=== PATIENT | male | born 1990 | race Caucasian/White ===

== ENCOUNTER 2018-12-11 21:36 | Inpatient (IN) ==
[2018-12-11] MEDS ORDERED: KETOROLAC 15 MG/1 ML VIAL IVP ONE (21:48)
[2018-12-11] MEDS ORDERED: Sodium Chloride 0.9% 1,000 ML PRIMARY IV ONE (21:48)
[2018-12-11 22:05] LABS: Hematocrit [HCT] 38.7 % (42.0-52.0); Hemoglobin [HGB] 13.5 g/dL (14.0-18.0); MEAN CORPUSCULAR VOLUME 90.6 FL (80-90); RED BLOOD COUNT 4.27 10^6/uL (4.70-6.10)
[2018-12-11 22:06] LABS: BASOPHILS # (AUTO) 0.03 10*3/UL; BASOPHILS % (AUTO) 0.2 % (0-1); EOSINOPHILS # (AUTO) 0.12 10*3/UL; EOSINOPHILS % (AUTO) 0.9 % (0-8); LYMPHOCYTES # (AUTO) 1.51 10*3/uL; MEAN CORPUSCULAR HGB CONC 34.9 g/dL (33-37); MEAN PLATELET VOLUME 9.1 FL (7.4-12.2); MONOCYTES # (AUTO) 1.11 10*3/UL (0.3-0.8); MONOCYTES % (AUTO) 8.3 % (5-15); NEUTROPHILS # (AUTO) 10.51 10*3/UL; NEUTROPHILS % (AUTO) 78.9 % (50-80); PLATELET MORPHOLOGY COMMENT NORMAL MORPHOLOGY (NORM); RBC MORPHOLOGY COMMENT NORMAL MORPHOLOGY (NORM); WBC MORPHOLOGY COMMENT NORMAL MORPHOLOGY (NORM)
[2018-12-11 22:13] LABS: BLOOD UREA NITROGEN 15 mg/dL (7-22); SERUM ALBUMIN 4.3 g/dL (3.5-4.8)
[2018-12-11] MEDS ORDERED: ceFAZolin 1 GM VIAL IVP ONE (22:23)
[2018-12-11] MEDS ORDERED: Clindamycin 600mg (Premix) 600 MG/50 ML BAG IV ONE (22:24)
[2018-12-11] MEDS ORDERED: HEPARIN 5000 UNIT/1 ML SUBCUT SCH (23:00)
[2018-12-11] MEDS ORDERED: ONDANSETRON 4 MG/2 ML VIAL IVP PRN (23:20)
[2018-12-11] MEDS ORDERED: ACETAMINOPHEN 325 MG TABLET PO PRN (23:20)
[2018-12-11] MEDS ORDERED: LIDOCAINE W/ SODIUM BICARB 0.5 ML SYR SUBD PRN (23:20)
[2018-12-11] MEDS ORDERED: DOCUSATE 100 MG CAPSULE PO PRN (23:20)
[2018-12-11] MEDS ORDERED: ceFAZolin Inj 2 GM in Sodium Chloride 0.9% 100 ML IV SCH (23:20)
[2018-12-11] MEDS ORDERED: CALCIUM CARBONATE 500 MG (TUMS) CHEWABLE TABLET PO PRN (23:20)
[2018-12-12] MEDS: HEPARIN 5000 UNIT/1 ML SUBCUT SCH ×3 (00:20→16:00)
[2018-12-12] MEDS: HYDROcodone-APAP 5 MG -325 MG TABLET PO PRN ×3 (00:21→21:45)
[2018-12-12] MEDS: Sodium Chloride 0.9% 1,000 ML PRIMARY IV SCH ×2 (00:22→11:01)
[2018-12-12] MEDS: ceFAZolin Inj 2 GM in Sodium Chloride 0.9% 100 ML IV SCH ×3 (06:46→21:40)
[2018-12-12 08:21] LABS: Hematocrit [HCT] 33.4 % (42.0-52.0); Hemoglobin [HGB] 11.4 g/dL (14.0-18.0); MEAN CORPUSCULAR HGB CONC 34.1 g/dL (33-37); MEAN CORPUSCULAR VOLUME 93.6 FL (80-90); RED BLOOD COUNT 3.57 10^6/uL (4.70-6.10)
[2018-12-12 08:22] LABS: BASOPHILS # (AUTO) 0.03 10*3/UL; BASOPHILS % (AUTO) 0.4 % (0-1); EOSINOPHILS # (AUTO) 0.18 10*3/UL; EOSINOPHILS % (AUTO) 2.4 % (0-8); LYMPHOCYTES # (AUTO) 1.71 10*3/uL; MEAN PLATELET VOLUME 9.2 FL (7.4-12.2); MONOCYTES # (AUTO) 0.88 10*3/UL (0.3-0.8); MONOCYTES % (AUTO) 11.5 % (5-15); PLATELET MORPHOLOGY COMMENT NORMAL MORPHOLOGY (NORM); RBC MORPHOLOGY COMMENT NORMAL MORPHOLOGY (NORM); WBC MORPHOLOGY COMMENT NORMAL MORPHOLOGY (NORM)
[2018-12-12] MEDS ORDERED: POTASSIUM CHLORIDE 20 MEQ TAB PO SCH (21:00)
[2018-12-13] MEDS: HEPARIN 5000 UNIT/1 ML SUBCUT SCH ×2 (00:50→07:54)
[2018-12-13] MEDS: ceFAZolin Inj 2 GM in Sodium Chloride 0.9% 100 ML IV SCH (05:44)
[2018-12-13 06:02] LABS: MEAN CORPUSCULAR HGB CONC 33.3 g/dL (33-37); MEAN CORPUSCULAR VOLUME 94.5 FL (80-90); MEAN PLATELET VOLUME 9.8 FL (7.4-12.2); RED BLOOD COUNT 3.81 10^6/uL (4.70-6.10)
[2018-12-13 06:03] LABS: BASOPHILS # (AUTO) 0.03 10*3/UL; BASOPHILS % (AUTO) 0.5 % (0-1); EOSINOPHILS # (AUTO) 0.14 10*3/UL; EOSINOPHILS % (AUTO) 24 % (0-8); MONOCYTES # (AUTO) 0.96 10*3/UL (0.3-0.8); MONOCYTES % (AUTO) 16.2 % (5-15); NEUTROPHILS % (AUTO) 45.3 % (50-80); PLATELET MORPHOLOGY COMMENT NORMAL MORPHOLOGY (NORM); RBC MORPHOLOGY COMMENT NORMAL MORPHOLOGY (NORM); WBC MORPHOLOGY COMMENT NORMAL MORPHOLOGY (NORM)
[2018-12-13 06:10] LABS: BLOOD UREA NITROGEN 7 mg/dL (7-22); SERUM ALBUMIN 3.1 g/dL (3.5-4.8)
[2018-12-13] MEDS: HYDROcodone-APAP 5 MG -325 MG TABLET PO PRN ×2 (07:52→12:58)
[2018-12-13 10:58] VITALS: BP 115/68; RESP 17; TEMP 97; O2SAT 96
[2018-12-13] MEDS ORDERED: Clindamycin 900mg (Premix) 900 MG/50 ML BAG IV SCH (12:00)
[2018-12-13] MEDS ORDERED: cefTRIAXone Inj 2 GM in Sodium Chloride 0.9% 100 ML IV ONE (13:00)
[2018-12-13] MEDS ORDERED: ceFAZolin Inj 2gm (Premix) 2 GM/50 ML BAG IV SCH (14:30)
== END 2018-12-13 15:50 | disposition home or self-care (01) | DRG 603 ==
LOC: ER 21:36 → MED/SURG 22:49
PROVIDERS: ADMIT Internal Medicine; ATTEND Internal Medicine